=== PATIENT | female | born 1990 | race Caucasian/White ===

== ENCOUNTER 2017-12-11 02:22 | Inpatient (IN) | payer MEDICAID ==
[~2017-12-11] VITALS: Ht 167.6 cm; Wt 74.4 kg
[2017-12-11] MEDS ORDERED: SODIUM CHLORIDE FLUSH 10ML SYR IVF ONE (03:00)
[2017-12-11] MEDS ORDERED: SODIUM CHLORIDE 0.9% 1,000ML IVBOLUS ONE (03:00)
[2017-12-11] MEDS ORDERED: CLINDAMYCIN PMX 600MG/50ML 50 ML IV ONE (03:00)
[2017-12-11 03:22] LABS: BASOPHILS % (AUTO) 1 % (0-1); EOSINOPHILS # (AUTO) 0.44 x10^3/uL (0-0.4); EOSINOPHILS % (AUTO) 4 % (1-7); LYMPHOCYTES # (AUTO) 2.16 x10^3/uL (1-3.4); LYMPHOCYTES % (AUTO) 21 % (22-44); MD NO; MEAN CORPUSCULAR HEMOGLOBIN 27.8 pg (27.0-34.8); MEAN CORPUSCULAR HGB CONC 32.8 g/dL (32.4-35.8); MEAN CORPUSCULAR VOLUME 84.6 fL (80-100); MEAN PLATELET VOLUME 9.1 fL (7.4-10.4); MONOCYTES # (AUTO) 0.91 x10^3/uL (0.2-0.8); MONOCYTES % (AUTO) 9 % (2-9); NEUTROPHILS # (AUTO) 6.78 x10^3/uL (1.8-6.8); NEUTROPHILS % (AUTO) 65 % (42-75); PLATELET COUNT 269 x10^3/uL (130-400); RED BLOOD COUNT 4.85 x10^6/uL (3.82-5.3); RED CELL DISTRIBUTION WIDTH 14.7 % (9.6-15.2)
[2017-12-11 03:32] LABS: ALBUMIN 3.6 g/dL (3.4-5.0); ANION GAP 5 mmol/L (5-15); CALCIUM 8.5 mg/dL (8.5-10.1); CHLORIDE 106 mmol/L (98-107); CREATININE 0.78 mg/dL (0.55-1.02)
[2017-12-11] MEDS ORDERED: CLINDAMYCIN PMX 600MG/50ML 50 ML ONE (03:38)
[2017-12-11] MEDS ORDERED: SODIUM CHLORIDE 0.9% 1,000 ML IV ONE (03:47)
[2017-12-11] MEDS ORDERED: CLINDAMYCIN PMX 600MG/50ML 50 ML IV SCH (04:30)
[2017-12-11] MEDS ORDERED: DOCUSATE 100 MG CAPSULE PO PRN (04:30)
[2017-12-11] MEDS ORDERED: BISACODYL 10 MG SUPP PR PRN (04:30)
[2017-12-11] MEDS ORDERED: ACETAMINOPHEN 325 MG TABLET PO PRN (04:30)
[2017-12-11] MEDS ORDERED: hydrALAzine 20 MG/ML, 1ML IVPush PRN (04:30)
[2017-12-11] MEDS ORDERED: POLYETHYLENE GLYCOL 17 GM PACKET PO PRN (04:30)
[2017-12-11 04:42] LABS: FREE T4 (FREE THYROXINE) 1.12 ng/dL (0.76-1.46)
[2017-12-11 05:00] LABS: HEMOGLOBIN A1C 5.3 % (4.2-6.3)
[2017-12-11] MEDS: SODIUM CHLORIDE 0.9% 1,000 ML IV SCH ×3 (05:01→17:23)
[2017-12-11 05:11] VITALS: BP 137/95
[2017-12-11 06:50] VITALS: BP 125/75
[2017-12-11] MEDS: HEPARIN 5,000 UNITS/ML, 1ML SQ SCH ×2 (08:12→16:01)
[2017-12-11] MEDS ORDERED: NICOTINE 14MG/24 HR PATCH.TD24 TD SCH (09:30)
[2017-12-11 13:05] VITALS: BP 124/78
[2017-12-11 15:01] LABS: AMPHETAMINE SCREEN, URINE Positive (Negative); BARBITURATE SCREEN, URINE Negative (Negative); BENZODIAZEPINE SCREEN, URINE Negative (Negative); CANNABINOID SCREEN, URINE Negative (Negative); COCAINE SCREEN, URINE Negative (Negative); METHADONE SCREEN, URINE Negative (Negative); OPIATE SCREEN, URINE Positive (Negative)
== END 2017-12-11 17:57 | disposition left against medical advice (07) | DRG 603 ==
LOC: ED 03:10 → EDIP 03:47 → 4NOR 04:40
PROVIDERS: ADMIT Internal Medicine; ATTEND Internal Medicine
DX: L03.115 Cellulitis of right lower limb (principal); F17.210 Nicotine dependence, cigarettes, uncomplicated; F19.10 Other psychoactive substance abuse, uncomplicated; Z86.14 Personal history of Methicillin resistant Staphylococcus aureus infection; Z79.1 Long term (current) use of non-steroidal anti-inflammatories (NSAID); Z79.899 Other long term (current) drug therapy; Z53.21 Procedure and treatment not carried out due to patient leaving prior to being seen by health care provider
CPT/HCPCS: 36415; 80048; 80307; 82040; 83036; 83605; 83735; 84145; 84439; 84443; 84703; 85025; 86140; 87040; 93970; 96365; J7030

== ENCOUNTER 2019-12-24 08:23 | Inpatient (IN) | payer MEDICAID, OTHER ==
[~2019-12-24] VITALS: Ht 167.6 cm; Wt 67.0 kg
[~2019-12-24 08:23] MED LIST: ETOMIDATE 20 MG/10 ML ONE; PROPOFOL 10 MG/ML, 100ML IV ONE
[2019-12-24] MEDS ORDERED: SUCCINYLCHOLINE 20 MG/ML, 10ML ONE (08:25)
[2019-12-24] MEDS ORDERED: MIDAZOLAM 1 MG/ML, 5ML ONE (08:25)
[2019-12-24] MEDS ORDERED: LACTATED RINGERS 1,000 ML IVBOLUS ONE (09:00)
[2019-12-24] MEDS ORDERED: PLEASE ENTER HEIGHT AND WEIGHT MC SCH (09:00)
[2019-12-24] MEDS ORDERED: ONDANSETRON 2MG/ML, 2ML IVPush PRN (09:00)
[2019-12-24] MEDS ORDERED: BUPRENORPHINE/NALOXONE 2-0.5MG SL SCH (09:00)
[2019-12-24] MEDS ORDERED: LACTATED RINGERS 1,000 ML IV SCH ×3 (09:00→11:30)
[2019-12-24] MEDS ORDERED: ONDANSETRON 2MG/ML, 2ML ONE ×2 (09:01→20:04)
[2019-12-24] MEDS ORDERED: BUPRENORPHINE HCL/NALOXONE 8-2MG FILM SL ONE (09:04)
[2019-12-24 09:38] LABS: ALANINE AMINOTRANSFERASE 17 U/L (12-78); ALBUMIN 2.2 g/dL (3.4-5.0); ANION GAP 12 mmol/L (5-15); CALCIUM 8.9 mg/dL (8.5-10.1); CHLORIDE 108 mmol/L (98-107); CREATININE 0.75 mg/dL (0.55-1.02)
[2019-12-24] MEDS ORDERED: OXYTOCIN 30U/ 0.9% NaCL 500ML 500 ML IV ONE (09:39)
[2019-12-24] MEDS ORDERED: D5%-LACTATED RINGERS 1,000 ML IV SCH (09:39)
[2019-12-24 09:40] LABS: ALKALINE PHOSPHATASE 268 U/L (45-117); BILIRUBIN,TOTAL 0.5 mg/dL (0.2-1.0)
[2019-12-24] MEDS ORDERED: DIPHENHYDRAMINE 50 MG/ML, 1ML ONE (09:40)
[2019-12-24 09:44] LABS: D-DIMER (DIC) 2.28 ug/mlFEU (0.00-0.52)
[2019-12-24 09:53] LABS: AMPHETAMINE SCREEN, URINE Positive (Negative); BARBITURATE SCREEN, URINE Negative (Negative); BENZODIAZEPINE SCREEN, URINE Negative (Negative); CANNABINOID SCREEN, URINE Negative (Negative); COCAINE SCREEN, URINE Negative (Negative); METHADONE SCREEN, URINE Negative (Negative); OPIATE SCREEN, URINE Positive (Negative)
[2019-12-24 09:56] LABS: MICROSCOPIC INDICATED
[2019-12-24 10:00] LABS: MEAN CORPUSCULAR HEMOGLOBIN 20.4 pg (27.0-34.8); MEAN CORPUSCULAR HGB CONC 30.7 g/dL (32.4-35.8); MEAN CORPUSCULAR VOLUME 66.4 fL (80-100); MEAN PLATELET VOLUME 12.2 fL (7.4-10.4); PLATELET COUNT 300 x10^3/uL (130-400); RED BLOOD COUNT 5.01 x10^6/uL (3.82-5.3); RED CELL DISTRIBUTION WIDTH 17.2 % (9.6-15.2)
[2019-12-24] MEDS ORDERED: TERBUTALINE 1 MG/ML, 1ML IVPush PRN (10:00)
[2019-12-24] MEDS ORDERED: DIPHENHYDRAMINE 50 MG/ML, 1ML IVPush PRN (10:00)
[2019-12-24] MEDS ORDERED: SODIUM CITRATE/CITRIC ACID 30 ML UDC PO PRN (10:00)
[2019-12-24] MEDS ORDERED: TERBUTALINE 1 MG/ML, 1ML SQ PRN (10:00)
[2019-12-24] MEDS ORDERED: CALCIUM CARBONATE 500 MG TAB.CHEW PO PRN (10:00)
[2019-12-24 10:02] LABS: BASOPHILS # (AUTO) 0.11 x10^3/uL (0-0.1); BASOPHILS % (AUTO) 1 % (0-1); EOSINOPHILS # (AUTO) 0.07 x10^3/uL (0-0.4); EOSINOPHILS % (AUTO) 1 % (1-7); LYMPHOCYTES # (AUTO) 1.99 x10^3/uL (1-3.4); LYMPHOCYTES % (AUTO) 17 % (22-44); MD SCAN; MONOCYTES # (AUTO) 0.55 x10^3/uL (0.2-0.8); MONOCYTES % (AUTO) 5 % (2-9); NEUTROPHILS # (AUTO) 8.89 x10^3/uL (1.8-6.8); NEUTROPHILS % (AUTO) 77 % (42-75)
[2019-12-24 10:59] VITALS: BP 115/68
[2019-12-24] MEDS ORDERED: NITROFURANTOIN (MACROBID) 100 MG CAPSULE PO SCH (11:00)
[2019-12-24] MEDS ORDERED: POTASSIUM CHLORIDE 20 MEQ in SODIUM CHLORIDE 0.9% 250 ML IV ONE (11:00)
[2019-12-24] MEDS ORDERED: CEFAZOLIN PMX 1GM/50ML 50 ML IV SCH (11:00)
[2019-12-24] MEDS: LACTATED RINGERS 1,000 ML IV SCH ×2 (11:07→21:18)
[2019-12-24] MEDS ORDERED: LORazepam 2 MG/ML, 1ML ONE ×2 (11:37→12:02)
[2019-12-24] MEDS ORDERED: LORazepam 0.5MG TABLET PO PRN (12:00)
[2019-12-24] MEDS ORDERED: LORazepam 1MG TABLET PO PRN ×2 (12:00)
[2019-12-24] MEDS ORDERED: LORazepam 2 MG/ML, 1ML IV PRN ×2 (12:00)
[2019-12-24] MEDS ORDERED: NICOTINE 14MG/24 HR PATCH.TD24 TD ONE (13:30)
[2019-12-24] MEDS ORDERED: LORazepam 2 MG/ML, 1ML IVPush PRN (14:00)
[2019-12-24] MEDS ORDERED: DIAZEPAM 5 MG/ML, 2ML ONE (14:07)
[2019-12-24] MEDS ORDERED: DIAZEPAM 5 MG/ML, 2ML IV PRN (14:30)
[2019-12-24] MEDS ORDERED: FENTANYL PF 100 MCG/2ML ONE ×2 (14:31→14:42)
[2019-12-24] MEDS: FENTANYL PF 100 MCG/2ML IVPush PRN ×4 (14:47→16:16)
[2019-12-24] MEDS ORDERED: DIAZEPAM 5 MG/ML, 2ML IV ONE ×2 (15:00)
[2019-12-24] MEDS: CEFTRIAXONE PMX 1GM/50ML 50 ML IV SCH (15:19)
[2019-12-24] MEDS ORDERED: GABAPENTIN 100 MG CAPSULE PO SCH (16:00)
[2019-12-24] MEDS: PROCHLORPERAZINE 5 MG/ML, 2ML IM PRN (16:15)
[2019-12-24] MEDS: PROPOFOL 100 ML IV PRN ×4 (16:17→23:19)
[2019-12-24] MEDS ORDERED: PROPOFOL 100 ML IV PRN (16:20)
[2019-12-24] MEDS ORDERED: MIDAZOLAM HCL 50 MG in SODIUM CHLORIDE 0.9% 40 ML IV PRN (16:20)
[2019-12-24] MEDS ORDERED: PHARMACY MAY ADJ FOR RENAL FX MC SCH (16:30)
[2019-12-24] MEDS ORDERED: DEXTROSE 4 GM TAB.CHEW PO PRN (16:30)
[2019-12-24] MEDS ORDERED: SENNA/DOCUSATE TABLET NG PRN (16:30)
[2019-12-24] MEDS ORDERED: BISACODYL 10 MG SUPP PR PRN (16:30)
[2019-12-24] MEDS ORDERED: DEXTROSE 50%, 50ML SYRINGE IVPush PRN (16:30)
[2019-12-24] MEDS ORDERED: GLUCAGON 1 MG IM PRN (16:30)
[2019-12-24] MEDS ORDERED: LACTULOSE 20 GM/30 ML UDC NG PRN (16:30)
[2019-12-24] MEDS ORDERED: LIDOCAINE-MPF 1%, 2ML ENDO PRN (16:30)
[2019-12-24] MEDS ORDERED: MIDAZOLAM 1 MG/ML, 5ML IVPush ONE ×3 (16:30→18:00)
[2019-12-24] MEDS ORDERED: SENNA 176 MG/5 ML ORAL SOL NG PRN (16:30)
[2019-12-24] MEDS: ALBUTEROL/IPRATROPIUM 2.5MG/0.5MG, 3 ML INLINE SCH ×3 (16:30→22:41)
[2019-12-24] MEDS: FENTANYL PF 1,000 MCG in SODIUM CHLORIDE 0.9% 80 ML IV PRN ×3 (16:47→21:32)
[2019-12-24 17:12] LABS: BASOPHILS # (AUTO) 0.09 x10^3/uL (0-0.1); BASOPHILS % (AUTO) 1 % (0-1); EOSINOPHILS # (AUTO) 0.02 x10^3/uL (0-0.4); EOSINOPHILS % (AUTO) 0 % (1-7); LYMPHOCYTES # (AUTO) 2.24 x10^3/uL (1-3.4); LYMPHOCYTES % (AUTO) 16 % (22-44); MD NO; MEAN CORPUSCULAR HEMOGLOBIN 20.6 pg (27.0-34.8); MEAN CORPUSCULAR HGB CONC 30.8 g/dL (32.4-35.8); MEAN CORPUSCULAR VOLUME 66.7 fL (80-100); MEAN PLATELET VOLUME 12.2 fL (7.4-10.4); MONOCYTES # (AUTO) 0.66 x10^3/uL (0.2-0.8); MONOCYTES % (AUTO) 5 % (2-9); NEUTROPHILS # (AUTO) 10.91 x10^3/uL (1.8-6.8); NEUTROPHILS % (AUTO) 78 % (42-75); PLATELET COUNT 301 x10^3/uL (130-400); RED BLOOD COUNT 4.69 x10^6/uL (3.82-5.3); RED CELL DISTRIBUTION WIDTH 17.5 % (9.6-15.2)
[2019-12-24] MEDS: DIAZEPAM 5 MG/ML, 2ML IV PRN (17:12)
[2019-12-24 17:17] LABS: INTERNATIONAL NORMALIZED RATIO 0.85 (0.93-1.1)
[2019-12-24 17:22] LABS: ANION GAP 9 mmol/L (5-15); CALCIUM 8.4 mg/dL (8.5-10.1); CHLORIDE 109 mmol/L (98-107); CREATININE 0.88 mg/dL (0.55-1.02); TRIGLYCERIDES 333 mg/dL (50-200)
[2019-12-24] MEDS ORDERED: OXYTOCIN 30U/ 0.9% NaCL 500ML 500 ML ONE ×2 (17:44→20:38)
[2019-12-24] MEDS ORDERED: NEWBORN KIT ONE (17:44)
[2019-12-24 18:41] LABS: FREE T4 (FREE THYROXINE) 1.37 ng/dL (0.76-1.46)
[2019-12-24] MEDS ORDERED: FENTANYL PF 250 MCG/5ML ONE (19:07)
[2019-12-24] MEDS ORDERED: LIDOCAINE-MPF 2%, 2ML ONE ×2 (19:08)
[2019-12-24] MEDS ORDERED: CEFAZOLIN 1,000 MG ONE ×2 (19:08)
[2019-12-24] MEDS ORDERED: ROCURONIUM 10MG/ML,5ML ONE (19:08)
[2019-12-24] MEDS ORDERED: OXYTOCIN 10 UNITS/ML, 1ML ONE ×4 (19:08)
[2019-12-24] MEDS ORDERED: PROPOFOL 10 MG/ML, 20ML ONE (19:08)
[2019-12-24] MEDS ORDERED: VANCOMYCIN 1,000 MG ONE (19:52)
[2019-12-24] MEDS ORDERED: METOCLOPRAMIDE 5 MG/ML, 2ML ONE (20:04)
[2019-12-24] MEDS: MIDAZOLAM HCL 100 MG in SODIUM CHLORIDE 0.9% 80 ML IV PRN (21:17)
[2019-12-24] MEDS ORDERED: OXYTOCIN 30U/ 0.9% NaCL 500ML 500 ML IV SCH (21:39)
[2019-12-24] MEDS: SODIUM CHLORIDE FLUSH 10ML SYR IVF SCH (21:56)
[2019-12-25] MEDS: PROPOFOL 100 ML IV PRN ×6 (02:08→21:57)
[2019-12-25] MEDS: ALBUTEROL/IPRATROPIUM 2.5MG/0.5MG, 3 ML INLINE SCH ×6 (02:25→22:11)
[2019-12-25] MEDS: FENTANYL PF 1,000 MCG in SODIUM CHLORIDE 0.9% 80 ML IV PRN ×4 (03:28→22:08)
[2019-12-25 04:07] LABS: BASOPHILS # (AUTO) 0.01 x10^3/uL (0-0.1); BASOPHILS % (AUTO) 0 % (0-1); EOSINOPHILS # (AUTO) 0.17 x10^3/uL (0-0.4); EOSINOPHILS % (AUTO) 1 % (1-7); LYMPHOCYTES # (AUTO) 1.98 x10^3/uL (1-3.4); LYMPHOCYTES % (AUTO) 15 % (22-44); MD NO; MEAN CORPUSCULAR HEMOGLOBIN 20.5 pg (27.0-34.8); MEAN CORPUSCULAR HGB CONC 30.6 g/dL (32.4-35.8); MEAN CORPUSCULAR VOLUME 66.9 fL (80-100); MEAN PLATELET VOLUME 12.1 fL (7.4-10.4); MONOCYTES % (AUTO) 2 % (2-9); NEUTROPHILS % (AUTO) 81 % (42-75); PLATELET COUNT 243 x10^3/uL (130-400); RED BLOOD COUNT 4.23 x10^6/uL (3.82-5.3); RED CELL DISTRIBUTION WIDTH 16.5 % (9.6-15.2)
[2019-12-25 04:16] LABS: ALBUMIN 1.7 g/dL (3.4-5.0); ANION GAP 8 mmol/L (5-15); CALCIUM 7.9 mg/dL (8.5-10.1); CHLORIDE 109 mmol/L (98-107)
[2019-12-25 04:20] LABS: % IRON SATURATION 6 % (20-55); ALANINE AMINOTRANSFERASE 14 U/L (12-78); ALKALINE PHOSPHATASE 199 U/L (45-117); BILIRUBIN,TOTAL 0.5 mg/dL (0.2-1.0); CREATININE 0.78 mg/dL (0.55-1.02); IRON LEVEL 34 mcg/dL (50-170); TOTAL IRON BINDING CAPACITY 604 mcg/dL (250-450); TOTAL PROTEIN 5.4 g/dL (6.4-8.2)
[2019-12-25] MEDS: LACTATED RINGERS 1,000 ML IV SCH ×3 (05:41→21:05)
[2019-12-25] MEDS: MIDAZOLAM HCL 100 MG in SODIUM CHLORIDE 0.9% 80 ML IV PRN ×2 (09:11→20:57)
[2019-12-25] MEDS: ENOXAPARIN 40 MG/0.4 ML SQ SCH (09:12)
[2019-12-25] MEDS: SODIUM CHLORIDE FLUSH 10ML SYR IVF SCH ×2 (09:24→21:05)
[2019-12-25] MEDS: CYANOCOBALAMIN 1,000 MCG TABLET PO SCH (09:53)
[2019-12-25] MEDS: IRON SUCROSE COMPLEX 100MG/5ML IV SCH (09:53)
[2019-12-25] MEDS: CEFTRIAXONE PMX 1GM/50ML 50 ML IV SCH (12:44)
[2019-12-25] MEDS ORDERED: FUROSEMIDE 20 MG/2 ML ONE (12:49)
[2019-12-25] MEDS ORDERED: FUROSEMIDE 20 MG/2 ML IV ONE (13:00)
[2019-12-25] MEDS: DIAZEPAM 5 MG/ML, 2ML IV PRN ×2 (13:24→21:07)
[2019-12-26] MEDS: ALBUTEROL/IPRATROPIUM 2.5MG/0.5MG, 3 ML INLINE SCH ×2 (02:15→07:00)
[2019-12-26] MEDS: PROPOFOL 100 ML IV PRN ×2 (02:17→05:19)
[2019-12-26] MEDS: FENTANYL PF 1,000 MCG in SODIUM CHLORIDE 0.9% 80 ML IV PRN (03:43)
[2019-12-26 04:36] LABS: MEAN CORPUSCULAR HEMOGLOBIN 20.7 pg (27.0-34.8); MEAN CORPUSCULAR HGB CONC 30.4 g/dL (32.4-35.8); MEAN CORPUSCULAR VOLUME 68.2 fL (80-100); MEAN PLATELET VOLUME 9.2 fL (7.4-10.4); PLATELET COUNT 249 x10^3/uL (130-400); RED CELL DISTRIBUTION WIDTH 17.5 % (9.6-15.2)
[2019-12-26 05:43] LABS: BASOPHILS # (AUTO) 0.15 x10^3/uL (0-0.1); BASOPHILS % (AUTO) 1 % (0-1); EOSINOPHILS # (AUTO) 0.26 x10^3/uL (0-0.4); EOSINOPHILS % (AUTO) 2 % (1-7); LYMPHOCYTES # (AUTO) 1.79 x10^3/uL (1-3.4); LYMPHOCYTES % (AUTO) 13 % (22-44); MD SCAN; MONOCYTES # (AUTO) 0.52 x10^3/uL (0.2-0.8); MONOCYTES % (AUTO) 4 % (2-9); NEUTROPHILS # (AUTO) 11.06 x10^3/uL (1.8-6.8); NEUTROPHILS % (AUTO) 80 % (42-75)
[2019-12-26] MEDS: LACTATED RINGERS 1,000 ML IV SCH (05:51)
[2019-12-26 07:03] LABS: ANION GAP 7 mmol/L (5-15); CALCIUM 8.1 mg/dL (8.5-10.1); CHLORIDE 109 mmol/L (98-107); CREATININE 0.76 mg/dL (0.55-1.02)
[2019-12-26] MEDS: ENOXAPARIN 40 MG/0.4 ML SQ SCH (07:28)
[2019-12-26] MEDS: CYANOCOBALAMIN 1,000 MCG TABLET PO SCH (07:28)
[2019-12-26] MEDS: SODIUM CHLORIDE FLUSH 10ML SYR IVF SCH (07:29)
[2019-12-26] MEDS: IRON SUCROSE COMPLEX 100MG/5ML IV SCH (07:29)
[2019-12-26] MEDS ORDERED: DEXMEDETOMIDINE 400 MCG in SODIUM CHLORIDE 0.9% 96 ML IV PRN (08:30)
[2019-12-26] MEDS: DIAZEPAM 5 MG/ML, 2ML IV PRN (08:35)
[2019-12-26] MEDS ORDERED: LORazepam 2 MG/ML, 1ML IVPush PRN (14:30)
[2019-12-26] MEDS: CEFTRIAXONE PMX 1GM/50ML 50 ML IV SCH (14:45)
[2019-12-26] MEDS: OXYcodone IR 5MG TABLET PO PRN ×3 (15:00→23:44)
[2019-12-26 18:05] VITALS: BP 135/85
[2019-12-26] MEDS: LORazepam 1MG TABLET PO PRN (23:44)
[2019-12-27 02:31] VITALS: BP 134/87
[2019-12-27] MEDS: PROCHLORPERAZINE 5 MG/ML, 2ML IM PRN ×2 (02:33→07:38)
[2019-12-27 05:50] LABS: MEAN CORPUSCULAR HEMOGLOBIN 20.5 pg (27.0-34.8); MEAN CORPUSCULAR HGB CONC 30.6 g/dL (32.4-35.8); MEAN CORPUSCULAR VOLUME 67.1 fL (80-100); MEAN PLATELET VOLUME 9.2 fL (7.4-10.4); PLATELET COUNT 328 x10^3/uL (130-400); RED CELL DISTRIBUTION WIDTH 17.8 % (9.6-15.2)
[2019-12-27] MEDS: OXYcodone IR 5MG TABLET PO PRN (06:00)
[2019-12-27 06:02] VITALS: BP 134/84
[2019-12-27 06:03] LABS: MD YES
[2019-12-27 06:06] LABS: <PLATELET ESTIMATE> ADEQUATE; <PLT MORPHOLOGY> NORMAL PLT MORPH; ANISOCYTOSIS 1+; LYMPH#(MANUAL) 0.86 x10^3/uL (1-3.4); LYMPHS% (MANUAL) 4 % (22-44); POLYCHROMASIA 1+; SEG#(MANUAL) 20.74 x10^3/uL (1.8-6.8); SEGS% (MANUAL) 96 % (42-75)
[2019-12-27 06:07] LABS: MICROCYTOSIS 2+
[2019-12-27 07:40] VITALS: BP 122/81
[2019-12-27] MEDS: LORazepam 1MG TABLET PO PRN (07:50)
[2019-12-27] MEDS: MULTIVITAMINS/MINERALS TABLET PO SCH ×2 (07:50→09:00)
[2019-12-27] MEDS: ENOXAPARIN 40 MG/0.4 ML SQ SCH (07:50)
[2019-12-27] MEDS: IRON SUCROSE COMPLEX 100MG/5ML IV SCH (10:04)
[2019-12-27 12:00] VITALS: BP 123/81
[2019-12-27] MEDS ORDERED: ONDANSETRON 2MG/ML, 2ML IVPush PRN (13:30)
[2019-12-27] MEDS: SODIUM CHLORIDE 0.9% 1,000 ML IV SCH ×2 (13:59→22:30)
[2019-12-27] MEDS ORDERED: ACETAMINOPHEN 325 MG TABLET PO PRN (14:00)
[2019-12-27] MEDS ORDERED: LABETALOL 5MG/ML, 20ML IVPush PRN (14:00)
[2019-12-27] MEDS ORDERED: BISACODYL 10 MG SUPP PR PRN (14:00)
[2019-12-27] MEDS ORDERED: POLYETHYLENE GLYCOL 17 GM PACKET PO PRN (14:00)
[2019-12-27] MEDS ORDERED: hydrALAzine 20 MG/ML, 1ML IVPush PRN (14:00)
[2019-12-27] MEDS: CEFTRIAXONE PMX 1GM/50ML 50 ML IV SCH (14:32)
[2019-12-27 16:39] VITALS: BP 145/92
[2019-12-27 19:53] VITALS: BP 132/79
[2019-12-28] VITALS: BP 143/79
[2019-12-28] MEDS: PROCHLORPERAZINE 5 MG/ML, 2ML IM PRN ×2 (01:14→20:22)
[2019-12-28 04:05] VITALS: BP 120/83
[2019-12-28] MEDS: IRON SUCROSE COMPLEX 100MG/5ML IV SCH (08:54)
[2019-12-28] MEDS: SODIUM CHLORIDE 0.9% 1,000 ML IV SCH ×2 (08:54→17:47)
[2019-12-28] MEDS: ENOXAPARIN 40 MG/0.4 ML SQ SCH (08:54)
[2019-12-28] MEDS: ONDANSETRON 2MG/ML, 2ML IVPush PRN ×2 (08:54→09:24)
[2019-12-28 08:56] VITALS: BP 141/88
[2019-12-28] MEDS: SENNA/DOCUSATE TABLET PO SCH (09:00)
[2019-12-28] MEDS: MULTIVITAMINS/MINERALS TABLET PO SCH (09:00)
[2019-12-28] MEDS: MEROPENEM 1 GM in SODIUM CHLORIDE 0.9% 100 ML IV SCH ×2 (10:00→17:44)
[2019-12-28 10:53] LABS: FIO2 RA %
[2019-12-28 10:55] LABS: MEAN CORPUSCULAR HEMOGLOBIN 20.8 pg (27.0-34.8); MEAN CORPUSCULAR HGB CONC 30.9 g/dL (32.4-35.8); MEAN CORPUSCULAR VOLUME 67.2 fL (80-100); MEAN PLATELET VOLUME 9.2 fL (7.4-10.4); PLATELET COUNT 409 x10^3/uL (130-400); RED BLOOD COUNT 4.84 x10^6/uL (3.82-5.3); RED CELL DISTRIBUTION WIDTH 17.5 % (9.6-15.2)
[2019-12-28 11:05] LABS: ALANINE AMINOTRANSFERASE 19 U/L (12-78); ALBUMIN 2.1 g/dL (3.4-5.0); ANION GAP 10 mmol/L (5-15); CALCIUM 8.6 mg/dL (8.5-10.1); CHLORIDE 108 mmol/L (98-107); CREATININE 0.58 mg/dL (0.55-1.02)
[2019-12-28 11:08] LABS: ALKALINE PHOSPHATASE 167 U/L (45-117); BILIRUBIN,TOTAL 0.5 mg/dL (0.2-1.0); TOTAL PROTEIN 7.2 g/dL (6.4-8.2)
[2019-12-28 11:26] LABS: BASOPHILS # (AUTO) 0.05 x10^3/uL (0-0.1); BASOPHILS % (AUTO) 0 % (0-1); EOSINOPHILS # (AUTO) 0.12 x10^3/uL (0-0.4); EOSINOPHILS % (AUTO) 1 % (1-7); LYMPHOCYTES # (AUTO) 1.14 x10^3/uL (1-3.4); LYMPHOCYTES % (AUTO) 6 % (22-44); MD SCAN; MONOCYTES # (AUTO) 0.22 x10^3/uL (0.2-0.8); MONOCYTES % (AUTO) 1 % (2-9); NEUTROPHILS # (AUTO) 17.56 x10^3/uL (1.8-6.8); NEUTROPHILS % (AUTO) 92 % (42-75)
[2019-12-28 12:43] VITALS: BP 127/104
[2019-12-28 16:39] VITALS: BP 122/89
[2019-12-28 19:59] VITALS: BP 116/81
[2019-12-29 00:37] VITALS: BP 108/74
[2019-12-29] MEDS: ONDANSETRON 2MG/ML, 2ML IVPush PRN ×2 (00:56→18:36)
[2019-12-29] MEDS: MEROPENEM 1 GM in SODIUM CHLORIDE 0.9% 100 ML IV SCH ×3 (01:48→18:16)
[2019-12-29] MEDS: SODIUM CHLORIDE 0.9% 1,000 ML IV SCH ×2 (05:21→20:47)
[2019-12-29 07:13] VITALS: BP 141/87
[2019-12-29 07:25] LABS: MEAN CORPUSCULAR HEMOGLOBIN 20.9 pg (27.0-34.8); MEAN CORPUSCULAR HGB CONC 30.5 g/dL (32.4-35.8); MEAN CORPUSCULAR VOLUME 68.6 fL (80-100); PLATELET COUNT 457 x10^3/uL (130-400); RED BLOOD COUNT 5.12 x10^6/uL (3.82-5.3); RED CELL DISTRIBUTION WIDTH 17.5 % (9.6-15.2)
[2019-12-29 07:47] LABS: MD YES
[2019-12-29 07:50] LABS: BANDS%(MANUAL) 1 % (0-7); LYMPH#(MANUAL) 2.96 x10^3/uL (1-3.4); LYMPHS% (MANUAL) 15 % (22-44); METAMYELOCYTES% (MANUAL) 1 % (0-1); MONOS#(MANUAL) 0.39 x10^3/uL (0.3-2.7); MONOS% (MANUAL) 2 % (2-9); SEG#(MANUAL) 15.96 x10^3/uL (1.8-6.8); SEGS% (MANUAL) 81 % (42-75)
[2019-12-29 07:51] LABS: <PLATELET ESTIMATE> INCREASED; <PLT MORPHOLOGY> NORMAL PLT MORPH; ANISOCYTOSIS 1+; MICROCYTOSIS 2+; POLYCHROMASIA 1+
[2019-12-29] MEDS: OXYcodone IR 5MG TABLET PO PRN ×3 (09:39→22:43)
[2019-12-29] MEDS: MULTIVITAMINS/MINERALS TABLET PO SCH (09:39)
[2019-12-29] MEDS: IRON SUCROSE COMPLEX 100MG/5ML IV SCH (09:42)
[2019-12-29] MEDS: SENNA/DOCUSATE TABLET PO SCH (09:53)
[2019-12-29] MEDS: ENOXAPARIN 40 MG/0.4 ML SQ SCH (09:53)
[2019-12-29] MEDS ORDERED: PHARMACOKINETIC MONITORING MC PRN (12:00)
[2019-12-29] MEDS ORDERED: VANCOMYCIN PER PHARMACY MC SCH (12:00)
[2019-12-29 12:50] VITALS: BP 132/86
[2019-12-29] MEDS: VANCOMYCIN 1,300 MG in SODIUM CHLORIDE 0.9% 250 ML IV SCH (13:59)
[2019-12-29 20:30] VITALS: BP 129/88
[2019-12-30 00:49] VITALS: BP 120/82
[2019-12-30] MEDS: VANCOMYCIN 1,300 MG in SODIUM CHLORIDE 0.9% 250 ML IV SCH ×2 (01:51→12:48)
[2019-12-30] MEDS: SODIUM CHLORIDE 0.9% 1,000 ML IV SCH ×2 (01:59→18:12)
[2019-12-30] MEDS: MEROPENEM 1 GM in SODIUM CHLORIDE 0.9% 100 ML IV SCH ×3 (02:49→18:10)
[2019-12-30 07:30] VITALS: BP 131/86
[2019-12-30] MEDS: MULTIVITAMINS/MINERALS TABLET PO SCH (09:43)
[2019-12-30] MEDS: IRON SUCROSE COMPLEX 100MG/5ML IV SCH (09:43)
[2019-12-30] MEDS: ENOXAPARIN 40 MG/0.4 ML SQ SCH (09:44)
[2019-12-30] MEDS: OXYcodone IR 5MG TABLET PO PRN (09:44)
[2019-12-30] MEDS: SENNA/DOCUSATE TABLET PO SCH (09:44)
[2019-12-30 12:57] LABS: MEAN CORPUSCULAR HEMOGLOBIN 20.8 pg (27.0-34.8); MEAN CORPUSCULAR HGB CONC 30.5 g/dL (32.4-35.8); MEAN PLATELET VOLUME 9.7 fL (7.4-10.4); PLATELET COUNT 485 x10^3/uL (130-400); RED BLOOD COUNT 4.77 x10^6/uL (3.82-5.3); RED CELL DISTRIBUTION WIDTH 17.6 % (9.6-15.2)
[2019-12-30 13:00] LABS: ANION GAP 8 mmol/L (5-15); CALCIUM 8.2 mg/dL (8.5-10.1); CHLORIDE 107 mmol/L (98-107); CREATININE 0.49 mg/dL (0.55-1.02)
[2019-12-30 13:02] VITALS: BP 168/101
[2019-12-30 13:19] LABS: BASOPHILS # (AUTO) 0.04 x10^3/uL (0-0.1); BASOPHILS % (AUTO) 0 % (0-1); EOSINOPHILS # (AUTO) 0.81 x10^3/uL (0-0.4); EOSINOPHILS % (AUTO) 5 % (1-7); LYMPHOCYTES # (AUTO) 2.09 x10^3/uL (1-3.4); LYMPHOCYTES % (AUTO) 13 % (22-44); MD SCAN; MONOCYTES # (AUTO) 0.62 x10^3/uL (0.2-0.8); MONOCYTES % (AUTO) 4 % (2-9); NEUTROPHILS # (AUTO) 12.92 x10^3/uL (1.8-6.8); NEUTROPHILS % (AUTO) 78 % (42-75)
[2019-12-30 19:35] VITALS: BP 134/88
== END 2019-12-30 20:40 | disposition home or self-care (01) | DRG 786 ==
LOC: LDOP 08:23 → LDIP 09:54 → CCU 14:16 → LDIP 19:47 → CCU 20:41 → 2NW 12-26 17:10 → 4EST 12-27 16:38
PROVIDERS: ADMIT Obstetrics & Gynecology; ATTEND Internal Medicine Infectious Disease
PROC: 10D00Z1 Extraction of Products of Conception, Low, Open Approach (ICD-10-PCS; principal; 2019-12-24)
DX: O98.82 Other maternal infectious and parasitic diseases complicating childbirth (principal); A41.9 Sepsis, unspecified organism; G92 Toxic encephalopathy; J18.9 Pneumonia, unspecified organism; J96.01 Acute respiratory failure with hypoxia; O99.42 Diseases of the circulatory system complicating childbirth; F15.23 Other stimulant dependence with withdrawal; G93.1 Anoxic brain damage, not elsewhere classified; O99.324 Drug use complicating childbirth; O99.354 Diseases of the nervous system complicating childbirth; O98.42 Viral hepatitis complicating childbirth; B19.20 Unspecified viral hepatitis C without hepatic coma; B95.1 Streptococcus, group B, as the cause of diseases classified elsewhere; B96.20 Unspecified Escherichia coli [E. coli] as the cause of diseases classified elsewhere; D50.9 Iron deficiency anemia, unspecified; E87.6 Hypokalemia; O99.02 Anemia complicating childbirth; O99.284 Endocrine, nutritional and metabolic diseases complicating childbirth; O77.0 Labor and delivery complicated by meconium in amniotic fluid; O99.52 Diseases of the respiratory system complicating childbirth; Y95 Nosocomial condition; Z37.0 Single live birth; Z3A.39 39 weeks gestation of pregnancy
CPT/HCPCS: 36415; 36600; 84145; 87806; J0572; J3490; 70450; 71045; 74176; 76805; 80048; 80053; 80307; 81001; 82728; 82803; 83540; 83550; 83735; 84100; 84439; 84443; 84478; 84481; 85025; 85049; 85379; 85384; 85610; 85730; 86592; 86762; 86803; 86850; 86900; 86923; 87040; 87070; 87077; 87081; 87086; 87147; 87186; 87205; 87340; 87521; 88307; 93005; 94002; 94003; 94640; G0378; J0690; J0696; J1650; J1756; J2185; J2250; J2405; J2704; J3010; J3360; J3370; J3480; G0475; J0330; J0780; J1200; J1940; J2060; J2590; J2765; J7030; J7050; J7120; U0001-CS

== ENCOUNTER 2021-03-19 20:24 | Emergency (ER) | payer MEDICAID ==
[~2021-03-19] VITALS: Ht 167.6 cm; Wt 78.0 kg
[2021-03-19 20:39] VITALS: BP 126/78
[2021-03-19] MEDS ORDERED: SODIUM CHLORIDE 0.9% 1,000ML IVBOLUS ONE (21:00)
[2021-03-19] MEDS ORDERED: DIPHENHYDRAMINE 50 MG/ML, 1ML IVPush ONE (21:00)
[2021-03-19] MEDS ORDERED: PROCHLORPERAZINE 5 MG/ML, 2ML IVPush ONE (21:00)
--- NOTE | 2021-03-19 22:13 | NUR ---
NIL X1 FOR RE-VITAL
--- NOTE | 2021-03-19 22:31 | NUR ---
NIL X2 FOR RE-VITALS
--- NOTE | 2021-03-19 22:43 | NUR ---
NIL X3 FOR RE-VITALS. PT ELOPED
== END 2021-03-19 22:45 | disposition left against medical advice (07) ==
LOC: ED 21:00
DX: R51.9 Headache, unspecified (principal); R11.0 Nausea
CPT/HCPCS: 99281